=== PATIENT | female | born 1990 | race Caucasian/White ===

== ENCOUNTER 2018-12-07 14:43 | Emergency (ER) | payer OTHER ==
[2018-12-07 14:56] VITALS: BP 114/86
[2018-12-07 15:16] LABS: BILIRUBIN,URINE NEGATIVE (NEGATIVE); GLUCOSE, URINE (UA) NEGATIVE (NEGATIVE); KETONES,URINE (UA) NEGATIVE (NEGATIVE); LEUKOCYTE ESTERASE, URINE NEGATIVE (NEGATIVE); NITRITE,URINE NEGATIVE (NEGATIVE); OCCULT BLOOD,URINE MODERATE (NEGATIVE); PH,URINE 5.5 PH (5.0-7.5); PROTEIN,URINE NEGATIVE (NEGATIVE); UROBILINOGEN,URINE 0.2 (NORMAL) E.U./dL (NORMAL)
[2018-12-07 15:19] LABS: CLARITY,URINE CLEAR (CLEAR)
[2018-12-07 15:20] LABS: HCG UR QUAL NEGATIVE
[2018-12-07 15:27] LABS: RBC,URINE 0-5 /HPF (0-5); SQUAMOUS EPITHELIAL CELL,UR MOD Squamous (<= Few)
[2018-12-07 15:28] LABS: BACTERIA,URINE None Seen /HPF (None Seen)
--- NOTE | 2018-12-07 15:41 | ED Physician Documentation ---
PD HPI FEMALE - Stated complaint Stated Complaint: FEMALE - Chief complaint Chief Complaint: UTI - History obtained from History obtained from: Patient - History of Present Illness Timing - onset: Other (28YO WOMAN WITH H/O RECURRENT OVARIAN CYSTS WITH LLQ PAIN SINCE YESTERDAY SIMILAR TO PRIOR CYSTS. 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 - Present Medications Home Medications: Ambulatory Orders Medication Instructions Recorded Confirmed Hydrocodone/Acetaminophen 1 - 2 each PO Q6H PRN #14 tablet 12/07/18 [Hydrocodon-Acetaminophen 5-325] - Social History Does the pt smoke?: No - Family History Family history: reports: Non contributory PD ED PE NORMAL - Vitals Vital signs reviewed: Yes - General General: Alert and oriented X 3, No acute distress - Abdomen Abdomen: Soft, Non tender - Back Back: No CVA TTP - Neuro Neuro: Alert and oriented X 3, Normal speech - Psych Psych: Normal mood, Normal affect Results - Vitals Vitals: Vital Signs - 24 hr 12/07/18 14:52 Temperature 36.8 C Heart Rate 77 Respiratory 18 Rate Blood Pressure 114/86 H O2 Saturation 100 Oxygen O2 Source Room air - Labs Labs: Laboratory Tests 12/07/18 12/07/18 15:08 15:08 Urine Color YELLOW Urine Clarity CLEAR Urine pH 5.5 Ur Specific [place] <=1.005 <=1.005 Urine Protein NEGATIVE Urine Glucose (UA) NEGATIVE Urine Ketones NEGATIVE Urine Occult Blood MODERATE H Urine Nitrite NEGATIVE Urine Bilirubin NEGATIVE Urine Urobilinogen 0.2 (NORMAL) Ur Leukocyte Esterase NEGATIVE Urine RBC 0-5 Urine WBC 0-3 Ur Squamous Epith Cells MOD Squamous H Urine Bacteria None Seen Ur Microscopic Review INDICATED Urine Culture Comments NOT INDICATED Urine HCG, Qual NEGATIVE PD MEDICAL DECISION MAKING - ED course ED course: 28-year-old woman with recurrent ovarian cyst presents with left lower quadrant pain that is resolved on arrival. She has a benign examination. Had some symptoms of UTI but her UA is negative. She is on her menses currently. Departure - Departure Disposition: 01 Home, Self Care Clinical Impression: Pelvic pain Condition: Good Record reviewed to determine appropriate education?: Yes Instructions: ED Pelvic Pain UKO Prescriptions: Hydrocodone/Acetaminophen [Hydrocodon-Acetaminophen 5-325] 1 - 2 each PO Q6H PRN #14 tablet PRN Reason: pain Comments: As discussed, return for severe pain or new symptoms. Follow-up with your doctor in 2 weeks as scheduled. Discussed recurrent ovarian cysts.
== END 2018-12-07 16:20 | disposition home or self-care (01) ==
LOC: ED 14:43
DX: R10.2 Pelvic and perineal pain (principal); Z87.42 Personal history of other diseases of the female genital tract
CPT/HCPCS: 81001; 81003; 81025; 87086; 99282; 99283

== ENCOUNTER 2018-12-08 17:45 | Emergency (ER) | payer OTHER ==
[2018-12-08] MEDS ORDERED: ONDANSETRON 4 MG/2 ML VIAL IVP STA (18:08)
[2018-12-08] MEDS ORDERED: SODIUM CHLORIDE 0.9% 1,000 ML IV ONE (18:08)
[2018-12-08] MEDS ORDERED: KETOROLAC 30 MG/ML VIAL IVP STA (18:25)
[2018-12-08 18:33] LABS: BASOPHILS % (AUTO) 0.6 %; EOSINOPHILS % (AUTO) 0.4 %; HGB - HEMOGLOBIN 13.6 g/dL (12.0-16.0); LYMPHOCYTES # (AUTO) 1.5 10^3/uL (1.5-3.5); LYMPHOCYTES % (AUTO) 23.7 %; MEAN CORPUSCULAR HEMOGLOBIN 28.8 pg (27.0-31.0); MEAN CORPUSCULAR HGB CONC 33.3 g/dL (32.0-36.0); MEAN CORPUSCULAR VOLUME 86.3 fL (81.0-99.0); MEAN PLATELET VOLUME 8.6 fL (7.9-10.8); MONOCYTES # (AUTO) 0.4 10^3/uL (0.0-1.0); MONOCYTES % (AUTO) 6.2 %; NEUTROPHILS # (AUTO) 4.4 10^3/uL (1.5-6.6); NEUTROPHILS % (AUTO) 69.1 %; PLT - PLATELET COUNT 215 10^3/uL (130-450); RED BLOOD COUNT 4.74 10^6/uL (4.20-5.40); RED CELL DISTRIBUTION WIDTH 13.1 % (12.0-15.0); WHITE BLOOD COUNT 6.4 x10^3/uL (4.8-10.8)
[2018-12-08] MEDS ORDERED: HYDROmorphone 1 MG/ML CARPUJECT IVP STA (18:39)
--- NOTE | 2018-12-08 18:39 | ED Physician Documentation ---
PD HPI ABD PAIN - Stated complaint Stated Complaint: LOW AB PX - Chief complaint Chief Complaint: Abd Pain - History obtained from History obtained from: Patient - History of Present Illness Timing - onset: Today (Seen yesterday for presumed ovarian cyst pain on the left, pain had resolved on our evaluation. Pain recurred severely this afternoon with vomiting.) Review of Systems Ten Systems: 10 systems reviewed and negative Constitutional: reports: Fatigue, Sweats. denies: Fever, Chills GI: reports: Abdominal Pain, Nausea, Vomiting. 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 - Present Medications Home Medications: Ambulatory Orders Medication Instructions Recorded Confirmed Hydrocodone/Acetaminophen 1 - 2 each PO Q6H PRN #14 tablet 12/07/18 [Hydrocodon-Acetaminophen 5-325] Oxybutynin [Ditropan] 5 mg PO BID #60 tablet 12/08/18 Phenazopyridine HCl [Pyridium] 200 mg PO TID PRN #6 tablet 12/08/18 - Allergies Allergies/Adverse Reactions: Allergies Allergy/AdvReac Type Severity Reaction Status Date / Time No Known Drug Allergies Allergy Verified 12/08/18 18:04 - Social History Does the pt smoke?: No PD ED PE NORMAL - Vitals Vital signs reviewed: Yes - General General: Alert and oriented X 3, Other (Uncomfortable) - HEENT HEENT: PERRL, EOMI - Neck Neck: Supple, no meningeal sign, No bony TTP - Cardiac Cardiac: RRR, No murmur - Respiratory Respiratory: No respiratory distress, Clear bilaterally - Abdomen Abdomen: Normal bowel sounds, Soft, Other (TTP L pelvic) - Back Back: No CVA TTP, No spinal TTP - Derm Derm: Normal color, Warm and dry - Extremities Extremities: No edema, No calf tenderness / cord - Neuro Neuro: Alert and oriented X 3, Normal speech - Psych Psych: Normal mood, Normal affect Results - Vitals Vitals: Vital Signs - 24 hr 12/08/18 12/08/18 12/08/18 17:51 18:40 19:44 Temperature 36.9 C 36.7 C Heart Rate 81 69 63 Respiratory 18 18 16 Rate Blood Pressure 135/87 H 107/87 H 121/71 O2 Saturation 99 98 99 12/08/18 21:10 Temperature Heart Rate 82 Respiratory 18 Rate Blood Pressure 138/72 H O2 Saturation 99 Oxygen O2 Source Room air - Labs Labs: Laboratory Tests 12/08/18 12/08/18 18:28 18:28 WBC 6.4 RBC 4.74 Hgb 13.6 Hct 40.9 MCV 86.3 MCH 28.8 MCHC 33.3 RDW 13.1 Plt Count 215 MPV 8.6 Neut # (Auto) 4.4 Lymph # (Auto) 1.5 [place] # (Auto) 0.4 Eos # (Auto) 0.0 Baso # (Auto) 0.0 Absolute Nucleated RBC 0.00 Nucleated RBC % 0.1 Sodium 137 Potassium 3.7 Chloride 105 Carbon Dioxide 21 Anion Gap 11.0 BUN 10 Creatinine 0.6 Estimated GFR (MDRD) 118 Glucose 113 H Calcium 9.1 Total Bilirubin 0.8 AST 23 ALT 26 Alkaline Phosphatase 54 Total Protein 8.0 Albumin 4.2 Globulin 3.8 Albumin/Globulin Ratio 1.1 Lipase 24 - Rads (name of study) Pelvic sono Radiology: Prelim report reviewed, EMP read contemporaneously (Bladder stone) PD MEDICAL DECISION MAKING - ED course ED course: 28-year-old woman with pelvic pain, felt to be ovarian cyst now recurrent. Pain severe, so concern for torsion. Exam relatively benign. Ultrasound shows only a bladder stone and I suspect that may be intermittently causing her pain. Treated with Pyridium and oxybutynin. Departure - Departure Disposition: 01 Home, Self Care Clinical Impression: Bladder stone Condition: Good Record reviewed to determine appropriate education?: Yes Prescriptions: Oxybutynin [Ditropan] 5 mg PO BID #60 tablet Phenazopyridine HCl [Pyridium] 200 mg PO TID PRN #6 tablet PRN Reason: dysuria Comments: YOU DO HAVE A BLADDER STONE, NO CYSTS. FOLLOWUP WITH A UROLOGIST SUCH DR SCHROEDER IN [facility] [phone]
[2018-12-08 18:49] LABS: ALBUMIN 4.2 g/dL (3.2-5.5); ALBUMIN/GLOBULIN RATIO 1.1 (1.0-2.2); BILIRUBIN,TOTAL 0.8 mg/dL (0.2-1.0); CALCIUM 9.1 mg/dL (8.5-10.3); CREATININE 0.6 mg/dL (0.4-1.0)
[2018-12-08 21:10] VITALS: BP 138/72
--- NOTE | 2018-12-08 21:14 | Ultrasound Report ---
Reason: pelvic pain, L Procedure Date: 12/08/2018 Accession Number: [id number] / [id number] Procedure: US - Pelvic w/Transvag+Doppler Comp CPT Code: FULL RESULT: EXAM: PELVIC ULTRASOUND. EXAM DATE: 12/08/2018 08:55 PM. CLINICAL HISTORY: Pelvic pain, left. COMPARISON: None. TECHNIQUE: Realtime transabdominal pelvic scan performed to identify the uterus and adnexa and as an overview of other pelvic structures, followed by transvaginal scan to provide greater detail of the uterus and adnexa, with static image documentation. FINDINGS: Uterus: 8.5 x 3.4 x 4.9 cm, volume 74 cc. Anteverted position. Normal overall size and echotexture. Masses: None. Endometrium: 1.5 mm. Normal. Cervix: Unremarkable. Right Ovary: 3.7 x 2.8 x 2.8 cm, volume 15 cc. Normal echotexture and blood flow. Left Ovary: 3.3 x 2 x 3.1 cm, volume 10.7 cc. Normal echotexture and blood flow. Ovarian Doppler: Spectral Doppler performed Right ovary peak systolic velocity 8.4 cm/s, resistive index 0.6, arterial and venous blood flow present. Left ovary peak systolic velocity 6.5 cm/s, resistive index 0.66. Arterial and venous blood flow present. Free Fluid: None. Other: There appears to be a bladder calculus measuring 9 x 7 x 6 mm and there appears to be adjacent debris present. IMPRESSION: 1. No evidence for ovarian torsion. Uterus and ovaries appear within normal limits. 2. Bladder calculus. 3. See above. RADIA
[2018-12-08] MEDS ORDERED: OXYBUTYNIN 5MG TABLET PO STA (21:34)
[2018-12-08] MEDS ORDERED: PHENAZOPYRIDINE 100 MG TABLET PO STA (21:34)
== END 2018-12-08 21:48 | disposition home or self-care (01) ==
LOC: ED 17:45
DX: N21.0 Calculus in bladder (principal)
CPT/HCPCS: 36415; 76830; 76856; 80053; 83690; 85025; 93975; 96361; 96374; 96375; 99283; A9270; J1170

== ENCOUNTER 2019-07-11 15:28 | Emergency (ER) | payer OTHER ==
[2019-07-11 16:31] LABS: BASOPHILS % (AUTO) 0.4 %; EOSINOPHILS % (AUTO) 0.3 %; HGB - HEMOGLOBIN 14.4 g/dL (12.0-16.0); LYMPHOCYTES # (AUTO) 1.6 10^3/uL (1.5-3.5); LYMPHOCYTES % (AUTO) 20.8 %; MEAN CORPUSCULAR HEMOGLOBIN 28.5 pg (27.0-31.0); MEAN CORPUSCULAR HGB CONC 32.7 g/dL (32.0-36.0); MEAN PLATELET VOLUME 9.9 fL (7.9-10.8); MONOCYTES # (AUTO) 0.4 10^3/uL (0.0-1.0); MONOCYTES % (AUTO) 5.3 %; NEUTROPHILS # (AUTO) 5.7 10^3/uL (1.5-6.6); NEUTROPHILS % (AUTO) 72.9 %; PLT - PLATELET COUNT 243 10^3/uL (130-450); RED BLOOD COUNT 5.06 10^6/uL (4.20-5.40); RED CELL DISTRIBUTION WIDTH 12.7 % (12.0-15.0); WHITE BLOOD COUNT 7.9 x10^3/uL (4.8-10.8)
[2019-07-11 16:46] LABS: ALBUMIN 4.5 g/dL (3.2-5.5); ALBUMIN/GLOBULIN RATIO 1.2 (1.0-2.2); BILIRUBIN,TOTAL 0.6 mg/dL (0.2-1.0); CALCIUM 9.2 mg/dL (8.5-10.3); CREATININE 0.8 mg/dL (0.4-1.0); MAGNESIUM 2.2 mg/dL (1.7-2.8); PHOSPHORUS 2.5 mg/dL (2.5-4.6); TOTAL PROTEIN 8.2 g/dL (6.7-8.2)
--- NOTE | 2019-07-11 17:33 | ED Physician Documentation ---
History of Present Illness - Stated complaint Stated Complaint: HEART FLUTTER, CHILLS, CHEST PRESSURE - Chief complaint Chief Complaint: Cardiac - History obtained from History obtained from: Patient - History of Present Illness Timing: How many days ago (several) Pain level max: 0 Pain level now: 0 - Additonal information Additional information: 29-year-old female complains of intermittent palpitations for the past several days. These occur for a few seconds at a time. Nothing makes it better or worse. She states she had similar symptoms last time she was placed on spironolactone. She states that currently she was placed back on spironolactone. No chest pain. No shortness of breath. No nausea or vomiting. Nothing makes it better or worse Review of Systems Constitutional: denies: Fever, Chills Nose: denies: Rhinorrhea / runny nose, Congestion Throat: denies: Sore throat Cardiac: reports: Palpitations. 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: Ovarian cysts : Kidney stones - Present Medications Home Medications: Ambulatory Orders Medication Instructions Recorded Confirmed Spironolactone [Aldactone] 07/11/19 - Allergies Allergies/Adverse Reactions: Allergies Allergy/AdvReac Type Severity Reaction Status Date / Time No Known Drug Allergies Allergy Verified 07/11/19 15:40 - Social History Does the pt smoke?: No Smoking Status: Never smoker Does the pt drink ETOH?: No Does the pt have substance abuse?: No - Immunizations Immunizations are current?: Yes PD ED PE NORMAL - Vitals Vital signs reviewed: Yes - General General: Alert and oriented X 3, No acute distress - HEENT HEENT: PERRL, Moist mucous membranes, Pharynx benign - Neck Neck: Supple, no meningeal sign - Cardiac Cardiac: RRR, Strong equal pulses - Respiratory Respiratory: No respiratory distress, Clear bilaterally - Abdomen Abdomen: Soft, Non tender, Non distended - Derm Derm: Warm and dry, No rash - Extremities Extremities: No edema, No calf tenderness / cord - Neuro Neuro: Alert and oriented X 3, 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 development 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 2-12 intact, No motor deficit, No sensory deficit, Normal speech - Psych Psych: Normal mood, Normal affect Results - Vitals Vitals: Vital Signs - 24 hr 07/11/19 07/11/19 15:36 17:40 Temperature 36.7 C 37 C Heart Rate 90 80 Respiratory 18 12 Rate Blood Pressure 144/92 H 111/78 O2 Saturation 100 98 Oxygen O2 Source Room air - EKG (time done) 1544 Rate: Rate (enter#) (843) Rhythm: NSR [place]: Normal Intervals: Normal SD QRS: Normal Ischemia: Normal ST segments - Labs Labs: Laboratory Tests 07/11/19 07/11/19 16:30 16:30 WBC 7.9 RBC 5.06 Hgb 14.4 Hct 44.0 MCV 87.0 MCH 28.5 MCHC 32.7 RDW 12.7 Plt Count 243 MPV 9.9 Neut # (Auto) 5.7 Lymph # (Auto) 1.6 [place] # (Auto) 0.4 Eos # (Auto) 0.0 Baso # (Auto) 0.0 Absolute Nucleated RBC 0.00 Nucleated RBC % 0.0 Sodium 138 Potassium 3.3 L Chloride 101 Carbon Dioxide 28 Anion Gap 9.0 BUN 10 Creatinine 0.8 Estimated GFR (MDRD) 84 L Glucose 124 H Calcium 9.2 Phosphorus 2.5 Magnesium 2.2 Total Bilirubin 0.6 AST 28 ALT 25 Alkaline Phosphatase 54 Total Protein 8.2 Albumin 4.5 Globulin 3.7 Albumin/Globulin Ratio 1.2 Lipase 31 PD MEDICAL DECISION MAKING - ED course Complexity details: reviewed results, re-evaluated patient, considered differential, d/w patient ED course: Patient with palpitations of unclear etiology, may be related to her spironolactone as this occurred last time she was on that medication. She is well-appearing, nontoxic. Afebrile. No significant lab abnormalities. No acute findings on EKG or telemetry. We will have her follow-up with her doctor for Holter monitoring. Patient counseled regarding signs and symptoms for which I believe and urgent re-evaluation would be necessary. Patient with good un derstanding of and agreement to plan and is comfortable going home at this time This document was made in part using voice recognition software. While efforts are made to proofread this document, sound alike and grammatical errors may occur. Departure - Departure Disposition: 01 Home, Self Care Clinical Impression: Palpitations Condition: Good Instructions: ED Palpitations Follow-Up: LIZETT ADKINS DO [Primary Care Provider] - Within 1 week Comments: The cause of your symptoms is unclear. It may be related to your spironolactone. You should be placed on a Holter monitor with your doctor to see if you are having any arrhythmias. There are no arrhythmias on telemetry today or on your EKG. Your laboratory testing is normal as well. Discharge Date/Time: 07/11/19 18:08
[2019-07-11 17:41] VITALS: BP 111/78
== END 2019-07-11 18:08 | disposition home or self-care (01) ==
LOC: ED 15:28
DX: R00.2 Palpitations (principal)
CPT/HCPCS: 36415; 80053; 83690; 83735; 84100; 85025; 93005; 99284

== ENCOUNTER 2020-04-28 09:01 | Outpatient (CLI) | payer OTHER ==
--- NOTE | 2020-05-01 13:39 | Mammography Report ---
BILATERAL DIGITAL DIAGNOSTIC MAMMOGRAM 3D/2D: 04/28/2020 CLINICAL: Palpable left breast lump by physician. Baseline exam. Baseline mammogram. No prior exams were available for comparison. The tissue of both breasts is pred ominantly fatty. No significant masses, calcifications, or other findings are seen in either breast. Patient denies a palpable abnormality in the left breast. IMPRESSION: NEGATIVE There is no mammographic evidence of malignancy. Patient denies palpable abnormality. No localizing information could be obtained on possible palpable abnormality in the left breast. If a palpable abnormality was appreciated on clinical exam, targeted ultrasound should be preformed to exclude mammographically occult mass. Clinical follow-up as indica sue. Patient is scheduled for breast reduction surgery. This exam was interpreted at Station ID: [id number]. NOTE: For mammograms, a report in lay terms will be sent to the patient. Approximately 15% of breast malignancies will not be visualized mammographically. In the management of a palpable breast mass, a negative mammogram must not discourage biopsy of a clinically suspicious lesion. Electronically Signed By: Nicko Hollins M.D. slc/:04/28/2020 10:29:47 ACR BI-RADS Category 1: Negative 3341F PARENCHYMAL PATTERN: (F) - The breast(s) demonstrate(s) diffuse fatty replacement. BI-RADS CATEGORY: (1) - 1 RECOMMENDATION: (ANNUAL) - Recommend routine annual screening mammography. [id number] return to screening LATERALITY: (B)
== END 2020-04-28 09:02 | disposition home or self-care (01) ==
LOC: DI 09:01
PROVIDERS: ATTEND Family Medicine
DX: N63.20 Unspecified lump in the left breast, unspecified quadrant (principal); N62 Hypertrophy of breast
CPT/HCPCS: 77066